=== PATIENT | male | born 1990 | race American Indian/Alaskan Native ===

== ENCOUNTER 2021-03-09 23:24 | Emergency (ER) | payer OTHER ==
[2021-03-10] MEDS ORDERED: hydrALAZINE 25 MG TAB PO ONE (01:39)
[2021-03-10] MEDS ORDERED: ASPIRIN 325 MG TAB PO ONE (01:40)
[2021-03-10 02:02] LABS: Basophils % (Auto) 0.7 % (0.0-1.8); Eosinophils # (Auto) 0.2 K/mm3 (0.0-0.4); Hematocrit 42.6 % (35.5-45.6); Hemoglobin 14.8 gm/dl (11.8-15.2); Lymphocytes # (Auto) 2.7 K/mm3 (1.2-5.4); Lymphocytes % (Auto) 44.1 % (13.4-35.0); Mean Corpuscular HGB Conc 35 % (32-34); Mean Corpuscular Volume 84 fl (84-94); Monocytes # (Auto) 0.5 K/mm3 (0.0-0.8); Monocytes % (Auto) 7.5 % (0.0-7.3); Platelet Count 142 K/mm3 (140-440); Red Blood Count 5.09 M/mm3 (3.65-5.03); Red Cell Distribution Width 14.5 % (13.2-15.2)
--- NOTE | 2021-03-10 02:18 | XRay Report ---
CHEST 1 VIEW INDICATION / CLINICAL INFORMATION: dizziness, elevated BP STUDY TIME: 020 COMPARISON: None available. FINDINGS: SUPPORT DEVICES: None HEART / MEDIASTINUM: No significant abnormality. LUNGS / PLEURA: No significant pulmonary or pleural abnormality. No pneumothorax. ADDITIONAL FINDINGS: No significant additional findings. IMPRESSION: No significant acute abnormality Signer Name: Abhay Arita MD Signed: 03/10/2021 2:14 AM Workstation Name: [id number]
[2021-03-10 02:37] LABS: Alanine Aminotransferase 25 units/L (7-56); Albumin 4.4 g/dL (3.9-5); BUN/Creatinine Ratio 10; Blood Urea Nitrogen 15 mg/dL (9-20); Calcium 9.6 mg/dL (8.4-10.2); Hemolysis Index 20
--- NOTE | 2021-03-10 03:15 | Emergency Department Report ---
ED General Adult HPI - General Chief complaint: High BP Stated complaint: ELEVATED BP PER FIRE DEPARTMENT Source: patient Mode of arrival: Ambulatory Limitations: No Limitations - History of Present Illness Initial comments: Patient is a 30-year-old -[place] male with history of hypertension and noncompliant with his medications presents to the ED with persistently elevated high blood pressure, lightheadedness and headache for the last 2 weeks, worse in the last 3 days. Patient states that he has been taking [id number] pain medications for headache with no relief. Patient states that the last time he took his blood pressure medications is over 1 year. Patient denies chest pain, shortness of breath, change in vision, syncope, dizziness, fever, chills, cough, sore throat, abdominal pain, nausea, vomiting and palpitations. MD Complaint: Elevated Blood pressure; headache, ran out of BP medications -: Sudden, month(s) (6) Location: head Radiation: non-radiation Severity scale (0 -10): 0 Quality: dull Consistency: intermittent Improves with: none Worsens with: none Associated Symptoms: denies other symptoms, headaches. denies: confusion, chest pain, fever/chills, loss of appetite, malaise, nausea/vomiting, rash, seizure, shortness of breath, syncope, weakness Treatments Prior to Arrival: none - Related Data Previous Rx's Medication Instructions Recorded Last Taken Type Ibuprofen [Motrin 800 MG tab] 800 mg PO Q8HR PRN #30 tablet 09/01/15 Unknown Rx Sulfamethoxazole/Trimethoprim 1 each PO BID #20 tablet 09/01/15 Unknown Rx [Bactrim DS TAB] Acetaminophen [Tylenol] 500 mg PO Q6HR #30 tablet 03/10/21 Unknown Rx amLODIPine 10 mg PO DAILY #30 tab 03/10/21 Unknown Rx hydroCHLOROthiazide [HCTZ] 25 mg PO QDAY #30 tablet 03/10/21 Unknown Rx Allergies Allergy/AdvReac Type Severity Reaction Status Date / Time No Known Allergies Allergy Verified 09/01/15 07:49 ED Review of Systems ROS: Stated complaint: ELEVATED BP PER FIRE DEPARTMENT Other details as noted in HPI Constitutional: other (elevated BP, ran out of medications). denies: chills, fever Eyes: denies: eye pain, eye discharge, vision change ENT: denies: ear pain, throat pain Respiratory: denies: cough, shortness of breath, wheezing Cardiovascular: denies: chest pain, palpitations Endocrine: no symptoms reported Gastrointestinal: denies: abdominal pain, nausea, diarrhea Genitourinary: denies: urgency, dysuria Musculoskeletal: denies: back pain, joint swelling, arthralgia Skin: denies: rash, lesions Neurological: headache. denies: weakness, paresthesias Psychiatric: denies: anxiety, depression Hematological/Lymphatic: denies: easy bleeding, easy bruising ED Past Medical Hx - Past Medical History Hx Hypertension: Yes - Social History Smoking Status: Current Every Day Smoker Substance Use Type: None - Medications Home Medications: Home Medications Medication Instructions Recorded Confirmed Last Taken Type Ibuprofen [Motrin 800 MG tab] 800 mg PO Q8HR PRN #30 tablet 09/01/15 Unknown Rx Sulfamethoxazole/Trimethoprim 1 each PO BID #20 tablet 09/01/15 Unknown Rx [Bactrim DS TAB] Acetaminophen [Tylenol] 500 mg PO Q6HR #30 tablet 03/10/21 Unknown Rx amLODIPine 10 mg PO DAILY #30 tab 03/10/21 Unknown Rx hydroCHLOROthiazide [HCTZ] 25 mg PO QDAY #30 tablet 03/10/21 Unknown Rx ED Physical Exam - General Limitations: No Limitations General appearance: alert, in no apparent distress - Head Head exam: Present: atraumatic, normocephalic, normal inspection - Eye Eye exam: Present: normal appearance, PERRL, EOMI Pupils: Present: normal accommodation - ENT ENT exam: Present: normal exam, normal orophraynx, mucous membranes moist, TM's normal bilaterally, normal external ear exam - Neck Neck exam: Present: normal inspection, full ROM - Respiratory Respiratory exam: Present: normal lung sounds bilaterally. Absent: respiratory distress, wheezes, rales, rhonchi, chest wall tenderness, accessory muscle use, decreased breath sounds, prolonged expiratory - Cardiovascular Cardiovascular Exam: Present: regular rate, normal rhythm, normal heart sounds. Absent: systolic murmur, diastolic murmur, rubs, gallop - GI/Abdominal GI/Abdominal exam: Present: soft, normal bowel sounds. Absent: tenderness, guarding, rebound, hyperactive bowel sounds, hypoactive bowel sounds, organomegaly, mass - Extremities Exam Extremities exam: Present: normal inspection, full ROM, normal capillary refill - Back Exam Back exam: Present: normal inspection, full ROM. Absent: tenderness, CVA tenderness (R), CVA tenderness (L), muscle spasm, paraspinal tenderness, ve rtebral tenderness - Neurological Exam Neurological exam: Present: alert, oriented X3, CN II-XII intact, normal gait, reflexes normal - Psychiatric Psychiatric exam: Present: normal affect, normal mood - Skin Skin exam: Present: warm, dry, intact, normal color. Absent: rash ED Course Vital Signs 03/10/21 02:49 Pulse Rate 68 Blood Pressure 152/129 ED Medical Decision Making - Lab Data Result diagrams: 03/10/21 01:49 03/10/21 01:49 - EKG Data EKG shows normal: sinus rhythm Rate: normal - EKG Data Interpretation: normal EKG 03/10/21 03:41 The EKG is shows sinus rhythm with a ventricular rate of 77 bpm but abnormal T wave in diffuse leads - Radiology Data Radiology results: report reviewed, [place] [address] XRay Report Signed Patient: MARINO MCGREGOR JR MR#: [id number] : 1990 Acct:[id number] Age/Sex: 30 / M ADM Date: 03/09/21 Loc: ED Attending Dr: Ordering Physician: DANIA JEFFERS Date of Service: 03/10/21 Procedure(s): XR chest 1V ap Accession Number(s): [id number] cc: DANIA JEFFERS Fluoro Time In Minutes: CHEST 1 VIEW INDICATION / CLINICAL INFORMATION: dizziness, elevated BP STUDY TIME: 0207 COMPARISON: None available. FINDINGS: SUPPORT DEVICES: None HEART / MEDIASTINUM: No significant abnormality. LUNGS / PLEURA: No significant pulmonary or pleural abnormality. No pneumothorax. ADDITIONAL FINDINGS: No significant additional findings. IMPRESSION: No significant acute abnormality Signer Name: Abhay Arita MD Signed: 03/10/2021 2:14 AM Workstation Name: [id number] Transcribed By: GJ Dictated By: Abhay Arita MD Electronically Authenticated By: Abhay Arita MD Signed Date/Time: 03/10/21213 DD/ 2 TD/TT: - Medical Decision Making This is a 30-year-old -[place] male with history of hypertension and noncompliant with his medications presents to the ED with persistently elevated high blood pressure, lightheadedness and headache for the last 2 weeks, worse in the last 3 days. Patient states that he has been taking [id number] pain medications for headache with no relief. Patient states that the last time he took his blood pressure medications is over 1 year. In the ED, patient is alert and oriented x3 and is not in any distress but hypertensive in triage. EKG shows sinus rhythm with a ventricular rate of 77 bpm and abnormal T wave in diffuse leads and LVH pattern QRS. Chest x-ray shows no acute cardiopulmonary abnormalities or pneumonitis. Lab test results were reviewed and showed cr eatinine of 1.5 consistent with the patient's dehydration versus acute kidney injury. All other lab test results were nonactionable including troponin level. Patient was treated in the ED with hydralazine 50 mg and discharged home on medications for hypertension and was given a referral to the ginning operator on- call Dr. Perkins for follow-up. Patient's heart score is 2, and patient was discharged home and advised to return to the ED immediately if symptoms get worse. Patient was otherwise advised to follow-up with his primary care physician in 7 to 10 days for reevaluation. - Differential Diagnosis Uncontrolled Hypertension; Headache; dehydration Critical care attestation.: If time is entered above; I have spent that time in minutes in the direct care of this critically ill patient, excluding procedure time. ED Disposition Clinical Impression: Dehydration, Uncontrolled stage 2 hypertension Tension type headache Qualifiers: Headache chronicity pattern: acute headache Intractability: not intractable Qu alified Code(s): G44.209 - Tension-type headache, unspecified, not intractable Disposition: 01 HOME / SELF CARE / HOMELESS Is pt being admited?: No Does the pt Need Aspirin: No Condition: Stable Instructions: Hypertension (ED), Dehydration, Adult, [id number]-[id number]-Byfw, Tension Headache, Adult, [id number]-[id number], Hypertension, Adult, [id number] Additional Instructions: All lab test results were reviewed and are all nonactionable except for elevated creatinine level of 1.5 which may be due to dehydration or worsening kidney functions as a result of uncontrolled blood pressure. Chest x-ray showed no acute cardiopulmonary abnormalities or pneumonitis. Therefore drink plenty of fluids, take medication as advised, avoid medications like ibuprofen or Aleve for pain. Follow-up with your primary care physician in 7 to 10 days for reevaluation. Consider following up with a ginning operator Dr. Perkins in 3 to 5 days for reevaluation. Return to the ED immediately if symptoms get worse. Prescriptions: Acetaminophen [Tylenol] 500 mg PO Q6HR #30 tablet amLODIPine 10 mg PO DAILY #30 tab hydroCHLOROthiazide [HCTZ] 25 mg PO QDAY #30 tablet Referrals: [facility] [Provider Group] - 7-10 days GLORIA PERKINS MD [Staff Physician] - 3-5 Days Time of Disposition: 03:21 Print Language: MOROCCAN
[2021-03-10 07:50] VITALS: BP 174/100
--- NOTE | 2021-03-10 12:28 | Electrocardiograph Report ---
[facility] Test Date: 2021-03-10 Test Time: 01:36:40 Pat Name: MARINO MCGREGOR Department: Room: Gender: M Graphics Artist: : 1990 Requested By: TIFFANIE RAMIREZ Order Number: [id number] Reading MD: Darío Rubi Measurements Intervals [place] Rate: 77 P: 69 [place]: 170 QRS: 47 QRSD: 103 T: 244 QT: 380 QTc: 429 Interpretive Statements Sinus rhythm Abnormal T, consider ischemia, diffuse leads Borderline ST elevation, anterior leads No previous ECG available for comparison Electronically Signed On 03-10-2021 12:28:01 EDT by Darío Rubi
== END 2021-03-10 04:00 | disposition home or self-care (01) ==
LOC: ED 23:24
DX: I10 Essential (primary) hypertension (principal); G44.209 Tension-type headache, unspecified, not intractable; E86.0 Dehydration; F17.200 Nicotine dependence, unspecified, uncomplicated
CPT/HCPCS: 36415; 71045; 80053; 84484; 85025; 93005; 99283

== ENCOUNTER 2021-11-16 08:11 | Emergency (ER) | payer OTHER ==
[2021-11-16 08:25] VITALS: BP 125/98
[2021-11-16] MEDS ORDERED: KETOROLAC 30 MG/1 ML INJ IV ONE (16:19)
--- NOTE | 2021-11-16 16:19 | Emergency Department Report ---
ED General Adult HPI - General Chief complaint: Weakness Stated complaint: WEAKNESS,HYPERTENSION Time Seen by Provider: 11/16/21 16:12 Source: patient, EMS Mode of arrival: Stretcher Limitations: No Limitations - History of Present Illness Initial comments: This is a 31-year-old -[place] male who presents to the emergency room with weakness that started while at work around 7 AM today. Patient states while at work symptoms came on heavy. He reports feeling dizzy, palpitations, headache, and chest tightness. Patient states he had a near syncopal episode but his coworker caught him. He admits history of hypertension. He is currently taking hydralazine 50 mg p.o. twice daily and hydrochlorothiazide 25 mg p.o. daily. 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 States EMS was called and told he will need to follow up in the ER. -: This morning Location: chest Radiation: non-radiation Severity scale (0 -10): 0 Associated Symptoms: weakness. denies: chest pain, cough, diaphoresis, nausea/vomiting, shortness of breath Treatments Prior to Arrival: none - Related Data Previous Rx's Medication Instructions Recorded Last Taken Type Ibuprofen [Motrin 800 MG tab] 800 mg PO Q8HR PRN #30 tablet 09/01/15 Unknown Rx Sulfamethoxazole/Trimethoprim 1 each PO BID #20 tablet 09/01/15 Unknown Rx [Bactrim DS TAB] Acetaminophen [Tylenol] 500 mg PO Q6HR #30 tablet 03/10/21 Unknown Rx amLODIPine 10 mg PO DAILY #30 tab 03/10/21 Unknown Rx hydroCHLOROthiazide [HCTZ] 25 mg PO QDAY #30 tablet 03/10/21 Unknown Rx Potassium Chloride [K-Dur] 20 meq PO BID 3 Days #6 tab 11/16/21 Unknown Rx Allergies Allergy/AdvReac Type Severity Reaction Status Date / Time No Known Allergies Allergy Verified 09/01/15 07:49 ED Review of Systems ROS: Stated complaint: WEAKNESS,HYPERTENSION Other details as noted in HPI Constitutional: denies: chills, fever Respiratory: denies: cough, shortness of breath, wheezing Cardiovascular: palpitations. denies: chest pain, dyspnea on exertion, syncope Gastrointestinal: denies: abdominal pain, nausea, diarrhea Musculoskeletal: denies: back pain, joint swelling, arthralgia Skin: denies: rash, lesions Neurological: headache, vertigo. denies: weakness, paresthesias ED Past Medical Hx - Past Medical History Hx Hypertension: Yes - Social History Smoking Status: Current Every Day Smoker Substance Use Type: None - Medications Home Medications: Home Medications Medication Instructions Recorded Confirmed Last Taken Type Ibuprofen [Motrin 800 MG tab] 800 mg PO Q8HR PRN #30 tablet 09/01/15 Unknown Rx Sulfamethoxazole/Trimethoprim 1 each PO BID #20 tablet 09/01/15 Unknown Rx [Bactrim DS TAB] Acetaminophen [Tylenol] 500 mg PO Q6HR #30 tablet 03/10/21 Unknown Rx amLODIPine 10 mg PO DAILY #30 tab 03/10/21 Unknown Rx hydroCHLOROthiazide [HCTZ] 25 mg PO QDAY #30 tablet 03/10/21 Unknown Rx Potassium Chloride [K-Dur] 20 meq PO BID 3 Days #6 tab 11/16/21 Unknown Rx ED Physical Exam - General Limitations: No Limitations General appearance: alert, in no apparent distress - ENT ENT exam: Present: mucous membranes moist - Respiratory Respiratory exam: Present: normal lung sounds bilaterally. Absent: respiratory distress - Cardiovascular Cardiovascular Exam: Present: regular rate, normal rhythm. Absent: systolic murmur, diastolic murmur, rubs, gallop - GI/Abdominal GI/Abdominal exam: Present: soft, normal bowel sounds - Neurological Exam Neurological exam: Present: alert, oriented X3, normal gait - Psychiatric Psychiatric exam: Present: normal affect, normal mood - Skin Skin exam: Present: warm, dry, intact, normal color. Absent: rash ED Course Vital Signs 11/16/21 08:16 Temperature 98.4 F Pulse Rate 118 H Respiratory 18 Rate Blood Pressure 125/98 [Left] O2 Sat by Pulse 98 Oximetry ED Medical Decision Making - Lab Data Result diagrams: 11/16/21 16:55 11/16/21 16:55 Lab Results 11/16/21 11/16/21 11/16/21 Range/Units 16:55 16:55 16:55 WBC 5.5 (4.5-11.0) K/mm3 RBC 5.71 H (3.65-5.03) M/mm3 Hgb 16.0 H (11.8-15.2) gm/dl Hct 47.3 H (35.5-45.6) % MCV 83 L (84-94) fl MCH 28 (28-32) pg MCHC 34 (32-34) % RDW 15.3 H (13.2-15.2) % Plt Count 147 (140-440) K/mm3 Lymph % (Auto) 30.1 (13.4-35.0) % [place] % (Auto) 5.4 (0.0-7.3) % Eos % (Auto) 1.8 (0.0-4.3) % Baso % (Auto) 1.8 (0.0-1.8) % Lymph # (Auto) 1.7 (1.2-5.4) K/mm3 [place] # (Auto) 0.3 (0.0-0.8) K/mm3 Eos # (Auto) 0.1 (0.0-0.4) K/mm3 Baso # (Auto) 0.1 (0.0-0.1) K/mm3 Seg Neutrophils % 60.9 (40.0-70.0) % Seg Neutrophils # 3.4 (1.8-7.7) K/mm3 Sodium 142 (137-145) mmol/L Potassium 3.3 L (3.6-5.0) mmol/L Chloride 102.8 (98-107) mmol/L Carbon Dioxide 26 (22-30) mmol/L Anion Gap 17 mmol/L BUN 9 (9-20) mg/dL Creatinine 1.1 (0.8-1.3) mg/dL Estimated GFR > 60 ml/min BUN/Creatinine Ratio 8 % Glucose 127 H (75-100) mg/dL Calcium 9.5 (8.4-10.2) mg/dL Total Bilirubin 0.40 (0.1-1.2) mg/dL AST 26 (5-40) units/L ALT 35 (7-56) units/L Alkaline Phosphatase 96 (35-129) units/L Total Protein 7.4 (6.3-8.2) g/dL Albumin 4.5 (3.9-5) g/dL Albumin/Globulin Ratio 1.6 % TSH 0.824 (0.270-4.200) mlU/mL - EKG Data -: No EKG Interpreted by Me (By attending) EKG shows normal: sinus rhythm Rate: normal - Medical Decision Making 31 y.o. male that presents with weakness since this morning. Denies drug use, asthma, SOB, palpations, fever, or dyspnea. Past medical history of hypertension. Followed by [facility]. Vitals stable. Obtained CMP, CBC, and EKG. potassium 3.3. EKG no overt evidence of STEMI. Hypokalemia. Given KCl 40 mill EQ's p.o. Start KCl 20 mEq po twice daily x3 days. Patient's pain was controlled prior to discharge and well appearing. Instructed to follow-up with cardiology in 2 to 3 days. Referrals to PCP for continued care. Discharged home stable. Follow up with PCP in 24-48 hours. Given strict return instructions. - Differential Diagnosis acute coronary syndrome, pulmonary embolus, pneumothorax Critical care attestation.: If time is entered above; I have spent that time in minutes in the direct care of this critically ill patient, excluding procedure time. ED Disposition Clinical Impression: Hypokalemia, Tension headache, Weakness Disposition: 01 HOME / SELF CARE / HOMELESS Is pt being admited?: No Condition: Stable Instructions: General Headache Without Cause, Hypokalemia Prescriptions: Potassium Chloride [K-Dur] 20 meq PO BID 3 Days #6 tab Referrals: YARELIS CERNA MD [Primary Care Provider] - 3-5 Days BRITTNEE VALENZUELA MD [Referring] - 3-5 Days Forms: Work/School Release Form(ED) Time of Disposition: 18:09
[2021-11-16 17:30] LABS: Basophils # (Auto) 0.1 K/mm3 (0.0-0.1); Basophils % (Auto) 1.8 % (0.0-1.8); Eosinophils # (Auto) 0.1 K/mm3 (0.0-0.4); Eosinophils % (Auto) 1.8 % (0.0-4.3); Hematocrit 47.3 % (35.5-45.6); Lymphocytes # (Auto) 1.7 K/mm3 (1.2-5.4); Lymphocytes % (Auto) 30.1 % (13.4-35.0); Mean Corpuscular HGB Conc 34 % (32-34); Mean Corpuscular Volume 83 fl (84-94); Monocytes # (Auto) 0.3 K/mm3 (0.0-0.8); Monocytes % (Auto) 5.4 % (0.0-7.3); Platelet Count 147 K/mm3 (140-440); Red Blood Count 5.71 M/mm3 (3.65-5.03); Red Cell Distribution Width 15.3 % (13.2-15.2)
[2021-11-16 17:34] LABS: Alanine Aminotransferase 35 units/L (7-56); Albumin 4.5 g/dL (3.9-5); BUN/Creatinine Ratio 8; Blood Urea Nitrogen 9 mg/dL (9-20); Calcium 9.5 mg/dL (8.4-10.2); Hemolysis Index 8
[2021-11-16] MEDS ORDERED: POTASSIUM CHLORIDE ER 20 MEQ TAB PO ONE (17:51)
== END 2021-11-16 19:00 | disposition home or self-care (01) ==
LOC: ED 08:11
DX: E87.6 Hypokalemia (principal); G44.209 Tension-type headache, unspecified, not intractable; R53.1 Weakness; I10 Essential (primary) hypertension; Z79.899 Other long term (current) drug therapy; F17.200 Nicotine dependence, unspecified, uncomplicated
CPT/HCPCS: 36415; 80053; 84443; 85025; 93005; 96374; 99284; J1885